=== PATIENT | male | born 1940 | race Caucasian/White ===

== ENCOUNTER 2024-07-28 20:34 | Observation (INO) | payer MEDICARE, BC, SELFPAY ==
[2024-07-28 14:07] VITALS: BP 190/98
--- NOTE | 2024-07-28 17:00 | ED.GENMED ---
History of Present Illness
General
Chief Complaint: Fall
Source: patient and family (Patient's daughter at bedside)
Exam Limitations: none
Time Seen by Provider: 07/28/24 15:40
Nursing documentation reviewed up to this point in time: agreed with
History of Present Illness
History of Present Illness:
Patient is an 83-year-old male presenting with daughter for evaluation of right hip pain following a witnessed fall earlier today. Patient states he was walking in the dining hodges when he tripped and fell landing on his right side. Patient denies
any head strike or loss of consciousness. He has been unable to bear weight/ambulate since. Patient denies any proceeding lightheadedness/dizziness, chest pain, shortness of breath prior to fall.
He reports pain in his right hip, worse with movement. No headache, neck pain, or pain in lower extremities.
Patient states he typically ambulate independently with walker.
Past History
Past History
ED Past Medical History: Arrthythmia (a fib), HTN, Hypercholesterolemia and Psychiatric (anxiety)
ED Past Surgical History: Cholecystectomy and Other (hernia)
Social History
Tobacco: Non-smoker
Living: with family
Employment: Retired
Review of Systems
Review of Systems
Allergies reviewed?: Yes
All Other Systems: ROS reviewed and negative except as documented in HPI and ROS
Phy Exam
Physical Exam
Physical Exam:
GENERAL: No acute distress
HEENT: atraumatic, extraocular muscles intact, no signs of entrapment, dentition intact, no other obvious trauma
NECK: no midline tenderness, normal range of motion, no other obvious trauma
BACK: no midline tenderness, no other obvious trauma
CHEST: no tenderness, no flail segment, no subcutaneous emphysema, no other obvious trauma
LUNGS: clear to auscultation bilaterally
CARDIOVASCULAR: regular rate and rhythm
ABDOMEN: soft, non-tender, no masses, no other obvious trauma
PELVIS: stable. tenderness in right inguinal region.
EXTREMITIES: No deformity of RLE. Tenderness to right inguinal region as above. Full ROM in RLE including hip w/ minima discomfort. LLE atraumatic and nontender with full ROM. B/l lower extremities neurovascularly intact. moving all extremities,
distal pulses intact, no other obvious trauma
NEUROLOGIC: awake, alert x 3, no focal deficits, resting tremor
Course
Orders/Labs/Results
Orders:
Orders
07/28/24 Breakfast
Regular
At Your Request: Limited Participation
07/28/24 16:16
CT Head W/o Iv Contrast Urgent
Comment:
Reason For Exam: fall
Cervical Spine wo Contrast CT [CT Cervical Spine W/o Iv Contr] Urgent
Comment:
Reason For Exam: fall
07/28/24 17:25
Hips, Bilat 5 view W/AP Pelvis [CR Hips NIDA w/wo Pel Min 5 Vw*] Urgent
Comment:
Reason For Exam: fqall, b/l hip pain
Include a pelvis x-ray?: Yes
07/28/24 18:[address] [CT Pelvis W/o Iv Contrast] Urgent
Comment:
Reason For Exam: fall, right hip pain
07/28/24 18:38
Ondansetron Injectable [Zofran] 4 mg .ROUTE .STK-MED ONE
07/28/24 18:41
Tetanus/Diphth/Acelpertussis [Adacel] 0.5 ml IM .ONCE ONE
07/28/24 18:45
Basic Metabolic Panel Urgent
Complete Blood Count/With Diff Urgent
07/28/24 20:00
Admit/Transfer Patient As Directed
Co-Sign Provider:
Level of Care: Observation services
Assign to:: Medical/Surgical
Physician / Group: Maria T
Diagnosis: Ambulatory Dysfunction
07/28/24 20:01
PRN Pain Medication Management As Directed
May give lesser potent ordered pain med per pt: Yes
preference::
Protocol:: Medication orders for pain may be administered in a
manner that supports deferring to patient preference
when the pt is:
- Requesting an ordered lesser potent pain medication.
Least to most potent pain medications are defined
as: acetaminophen < NSAID < tramadol < opioids
(morphine, oxycodone, hydromorphone).
- Requesting a lesser dose of the same medication IF
ORDERED.
- Requesting a less intrusive route of administration
if both routes are prescribed by the provider (PO <
IV).
07/28/24 20:04
Code Status As Directed
Resuscitation Status: Full Code
07/28/24 21:43
Acetaminophen [Tylenol] 650 mg PO Q4HPRN PRN
Apixaban [Eliquis] 5 mg PO BID
07/28/24 21:43
Case Management Consult ONCE
Case Management Consult: Discharge Planning
Activity As Directed
Activity Level: Out of Bed- Chair
Vital Signs As Directed
Frequency: Per unit guidelines
Ot Eval And Treat Routine
Pt Eval And Treat Routine
Activity Level: Out of Bed-Early Mobility
07/28/24 22:00
Carbidopa/Levodopa [Sinemet 25-100] 1 tablet PO TID
Mirtazapine [Remeron] 15 mg PO HS
07/29/24 08:00
Amiodarone [Pacerone] 100 mg PO DAILY
Atorvastatin [Lipitor] 20 mg PO DAILY
Losartan [Cozaar] 100 mg PO DAILY
Metoprolol Xl [Toprol Xl] 100 mg PO DAILY
Pantoprazole [Protonix] 40 mg PO DAILY
Abnormal Lab Results
07/28/24
18:45
RBC 4.66 L 10^6/uL
(4.70-6.10)
RDW 15.8 H %
(11.5-14.5)
MPV 11.1 H fL
(7.4-10.4)
Absolute Monos (auto) 0.8 H 10^3/uL
(0.1-0.6)
Lymphocytes % 19.8 L %
(20.5-51.1)
BUN 23 H mg/dl
(9-20)
Glucose 113 H mg/dl
(70-99)
07/28/24 18:45
07/28/24 18:45
Vital Signs
Initial and Last Documented VS:
Initial Vital Signs
Temp Pulse Resp BP Pulse Ox
98.4 F 62 18 190/98 96
07/28/24 14:07 07/28/24 14:07 07/28/24 14:07 07/28/24 14:07 07/28/24 14:07
Last Documented Vital Signs
Temp Pulse Resp BP Pulse Ox
98.2 F 58 18 176/83 95
07/28/24 21:57 07/28/24 21:57 07/28/24 21:57 07/28/24 21:57 07/28/24 23:39
MDM/Problems Addressed
Differential Diagnosis Includes:
Not limited to: hip fracture, pelvic fracture, hip dislocation, etc
MDM/Problems Addressed:
Patient is an 83 year-old male presenting with right hip pain following mechanical fall earlier today. No known had strike although daughter did not witness fall. No other injuries sustained. Patient unable to bear weight/ambulance since fall. At
baseline � he walks with walker. Patient hemodynamically stable on arrival. Physical exam as above. No evidence of head or neck trauma. He does have tenderness to right inguinal region without any obvious deformity of right lower extremity. No
evidence of other traumatic injuries to extremities. Will obtain bilateral hip x-rays as well as CT/cervical spine and reassess.
Update: CT head/spine without acute abnormalities. Bilateral hip x-ray without evidence of fracture. Given patient remains unable to weight bar � will obtain CT pelvis.
Update: CT pelvis without evidence of fracture. However � patient still unable to bear weight/ambulate independently. In lieu of this � will admit for physical therapy/case management consult in the morning. Patient accepted to hospitalist service
in stable condition.
Chronic conditions affecting care:
N/A
Acute Exacerbation and/or Progression of Chronic Illness:
N/A
*Radiology
Radiology exam reviewed: preliminary read by ED provider (hip xray reviewed by me - no acute fracture) and radiology read reviewed
*Pulse Oximetry
Patient hypoxic: no
*EKG
Interpreted by ED Provider?: NA
*Clinical Analyst Interpretation
Rate: Clinical Analyst- N/A
*Critical Care Note
Total Time (30-74mins, 75-104mins- exclusive of procedures): Not Applicable
Patient Management
Discussion with other providers: Hospitalist
Escalation/DeEscalation of care consider admission/obs:
Admit for PT/CM consult
ED Attending Note
-
Portions of this chart may have been created with voice recognition software.� Occasional wrong word or��sound alike� substitutions may have occurred due to the inherent limitations of voice recognition software.
Discharge Plan
Departure
Patient Disposition: Admit
Date of Disposition: 07/28/24
Time of Disposition: 19:20
Presentation/result/management discussed w/ accepting MD/DO: Hospitalist
Discharge Problem:
Fall, Ambulatory dysfunction, Hip pain, right
Interventions
Interventions:
*Risk Screen - Suicide Last Done: 07/28/24 14:07
*General Assessment Last Done: 07/28/24 14:07
*Neglect/Abuse Screening Last Done: 07/28/24 14:07
*ED COVID-19 Vaccine History Last Done: 07/28/24 14:07
*Nursing Disposition Last Done: 07/28/24 21:37
ED-Musculoskeletal Assessment Last Done: 07/28/24 18:07
ED- Neurological Assessment Last Done: 07/28/24 18:07
ED-Skin Assessment Last Done: 07/28/24 18:07
Discharge Date and Time
Discharge Date/Time: 07/28/24 21:38
[2024-07-28 18:12] VITALS: BP 172/90
[2024-07-28 18:52] LABS: % Basophils 0.7 % (0-2); % Eosinophils 2.2 % (0-6); % Immature Granulocytes 0.4 % (0-0.5); % Lymphocytes 19.8 % (20.5-51.1); % Monocytes 8.6 % (1.7-9.3); % Neutrophils 68.3 % (42.2-75.2); Absolute Basophils 0.1 10^3/uL (0-0.2); Absolute Eosinophils 0.2 10^3/uL (0-0.7); Absolute Lymphocytes 1.8 10^3/uL (1.2-3.4); Absolute Monocytes 0.8 10^3/uL (0.1-0.6); Absolute Neutrophils 6.3 10^3/uL (1.4-6.5); Hematocrit 42.8 % (39.0-52.0); Hemoglobin 14.3 g/dL (13.0-18.0); Mean Corp Hgb Conc. 33.4 g/dL (33.0-37.0); Mean Corpuscular Hgb 30.7 pg (27.0-31.0); Mean Corpuscular Volume 91.8 fL (80.0-94.0); Mean Platelet Volume 11.1 fL (7.4-10.4); Nucleated Red Blood Cells % 0 % (-); Platelet Count 181 10^3/uL (130-400); Red Blood Cell Count 4.66 10^6/uL (4.70-6.10); Red Cell Dist. Width 15.8 % (11.5-14.5); White Blood Cell Count 9.2 10^3/uL (4.8-10.8)
[2024-07-28 19:07] LABS: Blood Urea Nitrogen 23 mg/dl (9-20); Calcium 9.3 mg/dl (8.4-10.2); Carbon Dioxide 24 mmol/L (22-30); Chloride 104 mmol/L (98-107); Glucose 113 mg/dl (70-99); Potassium 4.3 mmol/L (3.5-5.1); Sodium 139 mmol/L (135-145); eGFR > 60.00
--- NOTE | 2024-07-28 19:50 | HPS.HSE ---
Family Physician
-
Family Physician: Patricio Bennett PA-C
Chief Complaint
-
Fall
History of Present Illness
Patient is an 83 y/o male past medical history of Parkinson's Disease, Paroxysmal Atrial Fibrillation, and Hypertension who presents following a fall. Patient resides at [facility]. At baseline he ambulates with a walker. Today he
tripped and fell while in the dining room. He denies hitting his head or loss of consciousness. Unfortunately patient was unable to ambulate in the emergency and it was felt it is unsafe for him to return to his assisted living facility at this
time.
Medical History
Past Medical History
Past Medical History: Reports Other
Additional Past Medical History:
Paroxysmal Atrial Fibrillation
Essential Hypertension
Hyperlipidemia
Parkinson's Disease
Anxiety / Insomnia
Past Surgical History: Reports Other
Additional Past Surgical History:
Cholecystectomy
Hernia Repair
Right Total Hip Arthroplasty
Social History
Tobacco: Non-smoker
Living: Assisted Living
Family History
Family History: Not pertinent
Allergies / Home Medications
Allergies reflects when Allergies were last updated in [facility].
Home Medications with original date entered in [facility]
Allergy/Medication List:
Allergies
Allergy/AdvReac Type Severity Reaction Status Date / Time
No Known Allergies Allergy Verified 07/28/24 14:11
Home Medications
amiodarone 200 mg tablet 100 mg PO DAILY Arrhythmia 02/26/22
apixaban 5 mg tablet (Eliquis) 5 mg PO BID Blood clot prevention/tx 02/26/22
atorvastatin 20 mg tablet 20 mg PO DAILY High cholesterol 02/26/22
carbidopa 25 mg-levodopa 100 mg tablet 1 tab PO TID Neurological Condition 02/26/22
metoprolol succinate 100 mg capsule sprinkle, ext. release 24 hr 100 mg PO DAILY Heart disease/condition 02/26/22
pantoprazole 40 mg tablet,delayed release 40 mg PO DAILY Gastrointestinal issue 02/26/22
bisacodyl 10 mg rectal suppository 10 mg NC DAILYPRN PRN if no BM x 3 days #0 ea 03/05/22
mirtazapine 15 mg tablet 15 mg PO HS #30 tabs 03/05/22
polyethylene glycol 3350 17 gram oral powder packet 17 g PO DAILYPRN PRN constipation #0 ea 03/05/22
losartan 50 mg tablet 100 mg PO BID Blood pressure 07/28/24
Review of Systems
-
A 12 point ROS was completed and negative except as noted: Yes
Constitutional: Denies Fever or Chills
Respiratory: Denies Cough or Trouble Breathing
Cardiac: Denies Chest Pain or Palpitations
Physical Exam
Vital Signs
Vital Signs
Temp Pulse Resp BP Pulse Ox
98.4 F 64 18 172/90 95
07/28/24 14:07 07/28/24 18:12 07/28/24 18:12 07/28/24 18:12 07/28/24 18:12
Physical Exam
General: Comfortable and Conversant
HEENT: Anicteric and Moist mucous membranes
Respiratory: Clear and Non Labored Respirations
Cardiac: S1/S2 and Regular Rhythm
GI: Soft and Non Tender
Rectal: Deferred by Provider
Musculoskeletal: No Clubbing and No Cyanosis
Skin: Warm and Dry
Neuro: Awake, Alert, Oriented and Tremors (Fine Tremors Bilateral Hands)
Psych: Calm
Laboratory Results
-
07/28/24 18:45
07/28/24 18:45
Data Reviewed
-
Diagnostic Radiology: Report Reviewed by me
CT Scan: Report Reviewed by me
Lab Data: Labs Reviewed by me
Impression/Plan
-
Ambulatory Dysfunction
-Consult PT/OT
-Consult Case Management for discharge planning
Paroxysmal Atrial Fibrillation
-Continue amiodarone and metoprolol for rate/rhythm control
-Continue Eliquis
Essential Hypertension
-Continue losartan and metoprolol with hold parameters
Hyperlipidemia
-Continue atorvastatin
Parkinson's Disease
-Continue Sinemet
Anxiety / Insomnia
-Continue Remeron
DVT proph: SCDs
Code Status: Full Code
[2024-07-28] MEDS: ADACEL 0.5 ML IM (20:15)
--- NOTE | 2024-07-28 20:17 | W.PN.UPDATE ---
Update Note
Progress Note Update
This is an addendum to the H&P written by Amina Oliver on 07/28/24. Patient seen and examined independently with PA.
83-year-old male past medical history of Parkinson's disease, paroxysmal atrial fibrillation on Eliquis, hypertension, anxiety, hypercholesterolemia, Citrobacter urinary tract infection with bacteremia, presenting from [facility] with trip and fall
today. Normally ambulates with walker.
Hip x-ray and pelvic CT negative. CT head and cervical spine negative.
Patient unable to ambulate. PT/OT and case management for placement.
[2024-07-28 21:57] VITALS: BP 176/83
[2024-07-28 21:58] VITALS: BMI 34.3
[2024-07-28 22:02] VITALS: BMI 34.3
[2024-07-28] MEDS: SINEMET 25-100 1 TABLET PO (22:19)
[2024-07-28] MEDS: ELIQUIS 5 MG PO (22:19)
[2024-07-28] MEDS: REMERON 15 MG PO (22:21)
[2024-07-29 07:00] VITALS: BP 174/88
[2024-07-29] MEDS: PACERONE 100 MG PO (08:43)
[2024-07-29] MEDS: ELIQUIS 5 MG PO ×2 (08:43→19:32)
[2024-07-29] MEDS: PROTONIX 40 MG PO (08:43)
[2024-07-29] MEDS: SINEMET 25-100 1 TABLET PO ×3 (08:44→21:40)
[2024-07-29] MEDS: COZAAR 100 MG PO (08:44)
[2024-07-29] MEDS: LIPITOR 20 MG PO (08:44)
[2024-07-29] MEDS: TOPROL XL 100 MG PO (08:45)
--- NOTE | 2024-07-29 09:22 | W.PN.HOSP.TC ---
Today's Communication/Plan
-
PT OT. Discharge planning
Assessment / Plan
Assessment / Plan
Physical exam:
General: Well Developed, Well Nourished and No Apparent Distress
HEENT: Normocephalic, Atraumatic and Moist Mucous Membranes
Respiratory: Clear to Auscultation; Negative Wheezes, Rales or Rhonchi
Cardiac: Regular Rhythm and S1/S2
GI: Soft, Nontender and Nondistended
Musculoskeletal: No Clubbing, No Cyanosis and No Edema
Neuro: Awake, Alert and Oriented, generalized weakness
Psych: Calm
A/P:
Ambulatory Dysfunction
-Consult PT/OT
-Consult Case Management for discharge planning
- Discussed with daughter over the phone today
Paroxysmal Atrial Fibrillation
-Continue amiodarone and metoprolol for rate/rhythm control
-Continue Eliquis
Essential Hypertension
-Continue losartan and metoprolol with hold parameters
Hyperlipidemia
-Continue atorvastatin
Parkinson's Disease
-Continue Sinemet
Anxiety / Insomnia
-Continue Remeron
DVT proph: SCDs
Code Status: Full Code
Anticipated Discharge: 24 - 48 hours
Subjective/Interval History
-
Date of Service: July 29, 2024
No new complaints. Generalized fatigue
Objective Data
-
Vital Signs:
Vital Signs
Temp Pulse Resp BP Pulse Ox
98.2 F 58 18 176/83 95
07/28/24 21:57 07/28/24 21:57 07/28/24 21:57 07/28/24 21:57 07/28/24 23:39
I&O
07/28/24 07/29/24 07/30/24
06:59 06:59 06:59
Intake Total 480 / 480
Output Total 400 / 400
Balance 80 / 80
[2024-07-29 09:56] VITALS: BP 142/87; PULSE 62; O2SAT 96
[2024-07-29 10:01] VITALS: BP 142/82; PULSE 62; O2SAT 96
--- NOTE | 2024-07-29 14:43 | CM ---
Patient resting, CM spoke w/ patient's daughter, Christy, for information. Initial assessment completed. Patient is an 83 y/o male past medical history of Parkinson's Disease, Paroxysmal Atrial Fibrillation, and Hypertension who presents following a
fall.
Patient resides at [facility], per Christy, patient still has his home in [place] and has plan eventually for patient to return home. Patient has been residing at [facility] for a little over a year. Patient uses [facility] to ambulate, gets
assisted w/ showering once a week, assisted w/ medication management. Patient has received physical therapy at [facility] in the past.
PCP: Patricio Bennett
Pharmacy: [facility]
Therapy assessed- recommending SNF at d/c
Patient is currently admitted as obs. MARMOLEJO form verbally reviewed, copy on chart
Will discuss w/ patient and/or daughter about skilled rehab
Plan: SNF recommended
[2024-07-29 15:32] VITALS: BP 149/69
[2024-07-29 17:21] VITALS: BMI 34.3
[2024-07-29 19:27] LABS: Urine Albumin 1+ (Neg - Trace); Urine Bilirubin Negative (Negative); Urine Character Clear (Clear); Urine Color Yellow; Urine Glucose Negative (Negative); Urine Ketone 1+ (Negative); Urine Leukocyte Negative (Negative); Urine Nitrite Negative (Negative); Urine Occult Blood 3+ (Negative); Urine Specific Gravity 1.025 (<1.030); Urine Urobilinogen 1+ (Neg - 1+)
[2024-07-29 19:34] LABS: Urine Mucus Moderate; Urine Squamous Cell 0-2 /LPF (Few)
[2024-07-29 19:35] LABS: Urine Bacteria Few (Negative); Urine White Cell 0-2 /HPF (0-5)
[2024-07-29] MEDS: REMERON 15 MG PO (21:40)
[2024-07-29 23:17] VITALS: BP 147/67
[2024-07-30 02:50] VITALS: BP 172/84
[2024-07-30] MEDS: APRESOLINE 10 MG IV (02:54)
--- NOTE | 2024-07-30 03:34 | PTCARENOTE ---
Patient was restless and agitated in bed. Redirection/reorientation provided to the patient. Vital signs obtained. Patient bladder scanned for 154 ml. Patient offered water and the urinal. Bed alarm remains in place.
--- NOTE | 2024-07-30 03:48 | DOWNTIME ---
There was a [employer] Downtime on 07/30/2024 from 0200 to 07/31/2023 at 0318 . Downtime documentation of patient's care, including medication administrations, has been reconciled in the electronic record per guidelines. Refer to the
patient's paper chart under the miscellaneous tab to see printed paper medication records and downtime forms.
[2024-07-30 06:03] VITALS: BP 145/70
[2024-07-30 07:00] VITALS: BP 159/79
--- NOTE | 2024-07-30 08:37 | W.PN.HOSP.TC ---
Today's Communication/Plan
-
PT OT. Discharge planning
Assessment / Plan
Assessment / Plan
Physical exam:
General: Well Developed, Well Nourished and No Apparent Distress
HEENT: Normocephalic, Atraumatic and Moist Mucous Membranes
Respiratory: Clear to Auscultation; Negative Wheezes, Rales or Rhonchi
Cardiac: Regular Rhythm and S1/S2
GI: Soft, Nontender and Nondistended
Musculoskeletal: No Clubbing, No Cyanosis and No Edema
Neuro: Awake, Alert and Oriented, generalized weakness, bradykinesia, masked facies, cogwheel rigidity with presence of tremors
Psych: Calm
A/P:
Ambulatory Dysfunction
-Consult PT/OT
-Consult Case Management for discharge planning
- Discussed with daughter over the phone yesterday
Confusion likely related to delirium
- Check UA
-CT scan of the head unremarkable for acute findings
- Monitor mental status
Paroxysmal Atrial Fibrillation
-Continue amiodarone and metoprolol for rate/rhythm control
-Continue Eliquis
Essential Hypertension
-Continue losartan and metoprolol with hold parameters
Hyperlipidemia
-Continue atorvastatin
Parkinson's Disease
-Continue Sinemet
Anxiety / Insomnia
-Continue Remeron
DVT proph: SCDs
Code Status: Full Code
Anticipated Discharge: 24 - 48 hours
Subjective/Interval History
-
Date of Service: July 30, 2024
Patient alert and mildly confused but much improved than last night. Afebrile
Objective Data
-
Vital Signs:
Vital Signs
Temp Pulse Resp BP Pulse Ox
97.6 F 56 18 159/79 96
07/30/24 07:00 07/30/24 07:00 07/30/24 07:00 07/30/24 07:00 07/30/24 07:00
I&O
07/29/24 07/30/24 07/31/24
06:59 06:59 06:59
Intake Total 480 / 480
Output Total 400 / 400 250 / 250
Balance 80 / 80 -250 / -250
[2024-07-30] MEDS: SINEMET 25-100 1 TABLET PO ×3 (10:17→21:08)
[2024-07-30] MEDS: COZAAR 100 MG PO (10:17)
[2024-07-30] MEDS: LIPITOR 20 MG PO (10:18)
[2024-07-30] MEDS: PACERONE 100 MG PO (10:18)
[2024-07-30] MEDS: ELIQUIS 5 MG PO ×2 (10:18→20:28)
[2024-07-30] MEDS: PROTONIX 40 MG PO (10:23)
[2024-07-30] MEDS: TOPROL XL 100 MG PO (10:28)
[2024-07-30 13:25] LABS: % Basophils 0.5 % (0-2); % Eosinophils 1.1 % (0-6); % Immature Granulocytes 0.3 % (0-0.5); % Monocytes 10.3 % (1.7-9.3); % Neutrophils 74.8 % (42.2-75.2); Absolute Eosinophils 0.1 10^3/uL (0-0.7); Absolute Monocytes 0.8 10^3/uL (0.1-0.6); Absolute Neutrophils 5.5 10^3/uL (1.4-6.5); Hematocrit 41.5 % (39.0-52.0); Mean Corp Hgb Conc. 33.7 g/dL (33.0-37.0); Mean Corpuscular Hgb 30.8 pg (27.0-31.0); Mean Corpuscular Volume 91.4 fL (80.0-94.0); Nucleated Red Blood Cells % 0 % (-); Platelet Count 171 10^3/uL (130-400); Red Blood Cell Count 4.54 10^6/uL (4.70-6.10); Red Cell Dist. Width 15.6 % (11.5-14.5); White Blood Cell Count 7.3 10^3/uL (4.8-10.8)
[2024-07-30 13:38] LABS: ALT (SGPT) < 10 U/L (0-50); AST (SGOT) 21 U/L (17-59); Albumin 3.7 g/dl (3.5-5.0); Alkaline Phosphatase 71 U/L (38-126); Blood Urea Nitrogen 24 mg/dl (9-20); Calcium 9.3 mg/dl (8.4-10.2); Carbon Dioxide 28 mmol/L (22-30); Chloride 105 mmol/L (98-107); Estimated Creatinine Clearance 94 ml/min; Glucose 125 mg/dl (70-99); Potassium 3.6 mmol/L (3.5-5.1); Sodium 141 mmol/L (135-145); Total Bilirubin 1.5 mg/dl (0.2-1.3); Total Protein 6.4 g/dl (6.3-8.2); eGFR > 60.00
--- NOTE | 2024-07-30 13:45 | CON.NEURO ---
Consultation
Order
Date of Consultation: 07/30/24
Requesting Provider: Beltran Michaels MD
Reason for Consult: Encephalopathy, Parkinson disease
Neurology Consultation Note.
HPI: This is an 83-year-old RH man who presented to [facility] on July 28, 2024 status post fall. According to the patient he lost his balance when he was turning to sit down to have breakfast.
The patient states that he has had progressive resting right greater than left hand tremor over the last year. He admits to visual as well as auditory hallucinations that he has been experiencing in the evening over the last couple of months.
He describes seeing people who appear real to him, 'I see and it's just like they're right there. They always look the same.' He mentions being able to see and talk to these hallucinations, and that they talk back to him. The patient acknowledges
that he knows these people are not actually present.
ER VS:174/88, 61, afebrile
EKG:�pending
PDMP:none
Labs: Glucose�113, bilirubin�1.5, normal sodium, creatinine, WBCs.
UA�positive for ketones, RBCs, bacteria, albumin
CT head wo contrast-moderate subcortical, deep, and periventricular white matter low-attenuation
PMH: Parkinsonism PA A-Fib, HTN, DLP, insomnia, GERD
PSH: R TKA, cholecystectomy, hernia repair, cholecystectomy
SH: Resident at [facility], former villa, has 2 children ambulates with a walker
FH: Not contributory to current presentation.
All:NKDA
ROS: Constitutional: Negative. Negative for chills, fever and unexpected weight change.
HENT: Positive for poor hearing
Eyes: Positive for impaired vision
Respiratory: Negative for cough, choking and shortness of breath.
Cardiovascular: Negative for chest pain, palpitations and leg swelling.
Gastrointestinal: Negative for abdominal pain and vomiting.
Endocrine: Negative. Negative for cold intolerance.
Genitourinary: Denied having urinary incontinence
Musculoskeletal: Negative for back pain, gait problem, neck pain and neck stiffness.
Skin: Negative for rash.
Allergic/Immunologic: Negative. Negative for immunocompromised state.
Neurological: Positive for resting hand and head tremor, imbalance
Psychiatric/Behavioral: Positive for visual and auditory hallucination
General: Well developed. In no acute distress.
Cardio: Regular rate and rhythm without murmur. Extremities are without cyanosis or edema.
Neuro:
Mental Status: Alert, oriented to self, place, month, year. Date was incorrect. Impaired attention and recall. Follows simple requests. Nonfluent. No hemineglect.
Cranial Nerves: Pupils are equally round and reactive to light. EOMs full. Visual cortes full to confrontation. No ptosis. No nystagmus. V1-V3 intact to light touch and pinprick bilaterally, symmetric. Face symmetric. Impaired hearing AU.
The palate elevated well. SCMs and traps 5/5. Tongue midline. Mild dysarthria and dysphonia.
Motor: Increased motor tone in upper and lower extremities. No pronator or arm drift. Strength 5/5 throughout. No clonus.
Reflexes: Bilateral grasp
Sensory: Absent vibration at the toes and ankles and preserved at the knees
Coordination: Right greater than left resting hand and arm tremor, resting chin tremor.
Gait: deferred
Assessment and Plan:
I. Probable Lewy body disease
II. Ambulatory dysfunction
III. PA A-fib
IV. Distal symmetric large fiber polyneuropathy
- Telemetry monitoring
- Fall precautions
- Please obtain orthostatic vital signs
- Avoid medications with dopamine blocking properties
- Polyneuropathy blood work
- Continue carbidopa 25 mg-levodopa 100 mg tablet 1 tab PO TID
-Please obtain medical records from patient's PCP/neurologist
-Psychiatry consult
-PT/OT
I personally reviewed all radiology and labs along with past medical records pertinent to current medical problems. Total time spent in patient care is 60 minutes.
Thank you for allowing us to participate in the care of this patient. We will continue to follow. Please do not hesitate to contact us with any questions or concerns.
Subjective/Objective
Subjective Data
Date of Service: July 30, 2024
Objective Data
Vital Signs
Temp Pulse Resp BP Pulse Ox
36.4 C 56 18 159/79 96
07/30/24 07:00 07/30/24 07:00 07/30/24 07:00 07/30/24 07:00 07/30/24 09:00
Lab Results
07/30/24 13:08
07/30/24 13:08
Sodium 141 mmol/L (135-145) 07/30/24 13:08
Potassium 3.6 mmol/L (3.5-5.1) 07/30/24 13:08
BUN 24 mg/dl (9-20) H 07/30/24 13:08
Glucose 125 mg/dl (70-99) H 07/30/24 13:08
Calcium 9.3 mg/dl (8.4-10.2) 07/30/24 13:08
Patient Allergies
No Known Allergies Allergy (Verified 07/28/24 14:11)
Medications
-
Active Medications
Generic Name Dose Route Start Last Admin
Trade Name Freq PRN Reason Stop Dose Admin
Acetaminophen 650 mg 07/28/24 21:43
Acetaminophen 325 Mg Tablet PO 08/25/24 21:42
Q4HPRN PRN
mild pain/ fever>100.5F
Amiodarone HCl 100 mg 07/29/24 08:00 07/30/24 10:18
Amiodarone 200 Mg Tablet PO 08/26/24 07:59 100 mg
DAILY PAKO Administration
Apixaban 5 mg 07/28/24 21:43 07/30/24 10:18
Apixaban (Eliquis) 5 Mg Tablet PO 08/25/24 21:42 5 mg
BID PAKO Administration
Atorvastatin Calcium 20 mg 07/29/24 08:00 07/30/24 10:18
Atorvastatin (Lipitor) 20 Mg Tablet PO 08/26/24 07:59 20 mg
DAILY PAKO Administration
Carbidopa/Levodopa 1 tablet 07/28/24 22:00 07/30/24 10:17
Carbidopa (25 Mg)/Levodopa (100 Mg) Regular Release Tablet PO 08/25/24 21:59 1 tablet
TID PAKO Administration
Docusate Sodium 100 mg 07/30/24 13:00
Docusate Sodium 100 Mg Capsule PO 08/27/24 12:59
BID PAKO
Hydralazine HCl 10 mg 07/28/24 22:56 07/30/24 02:54
Hydralazine 20 Mg/Ml Vial IV 08/25/24 22:55 10 mg
Q6HPRN PRN Administration
SBP>180 or DBP>100
Losartan Potassium 100 mg 07/29/24 08:00 07/30/24 10:17
Losartan 100 Mg Tablet PO 08/26/24 07:59 100 mg
DAILY PAKO Administration
Metoprolol Succinate 100 mg 07/29/24 08:00 07/30/24 10:28
Metoprolol 100 Mg Extended Release Tablet PO 08/26/24 07:59 100 mg
DAILY PAKO Administration
Mirtazapine 15 mg 07/28/24 22:00 07/29/24 21:40
Mirtazapine 15 Mg Regular Release Tablet PO 08/25/24 21:59 15 mg
HS PAKO Administration
Pantoprazole Sodium 40 mg 07/29/24 08:00 07/30/24 10:23
Pantoprazole 40 Mg Delayed Release Tablet PO 08/26/24 07:59 40 mg
DAILY PAKO Administration
Polyethylene Glycol 17 grams 07/30/24 13:00
Polyethylene Glycol Powder 17 Grams Packet PO 08/27/24 12:59
DAILY PAKO
Sodium Chloride 0 flush 07/28/24 22:00
Sodium Chloride 0.9% (Flush) Syringe IV 08/25/24 21:59
PER PROTOCOL PAKO
Home Medications
�Medication �Instructions �Recorded
amiodarone 200 mg tablet 100 mg PO DAILY Arrhythmia 02/26/22
apixaban 5 mg tablet (Eliquis) 5 mg PO BID Blood clot 02/26/22
prevention/tx
atorvastatin 20 mg tablet 20 mg PO DAILY High cholesterol 02/26/22
carbidopa 25 mg-levodopa 100 mg 1 tab PO TID Neurological Condition 02/26/22
tablet
metoprolol succinate 100 mg 100 mg PO DAILY Heart 02/26/22
capsule sprinkle, ext. release 24 disease/condition
hr
pantoprazole 40 mg tablet,delayed 40 mg PO DAILY Gastrointestinal 02/26/22
release issue
bisacodyl 10 mg rectal suppository 10 mg MN DAILYPRN PRN if no BM x 3 03/05/22
days #0 ea
mirtazapine 15 mg tablet 15 mg PO HS #30 tabs 03/05/22
polyethylene glycol 3350 17 gram 17 g PO DAILYPRN PRN constipation 03/05/22
oral powder packet #0 ea
losartan 50 mg tablet 100 mg PO BID Blood pressure 07/28/24
Vital Signs and Labs
-
Vital Signs and Labs:
Vital Signs
Temp Pulse Resp BP Pulse Ox
36.4 C 61 20 143/71 97
07/30/24 15:00 07/30/24 15:00 07/30/24 15:00 07/30/24 15:00 07/30/24 15:00
Lab Results
07/30/24 13:08
07/30/24 13:08
Sodium 141 mmol/L (135-145) 07/30/24 13:08
Potassium 3.6 mmol/L (3.5-5.1) 07/30/24 13:08
BUN 24 mg/dl (9-20) H 07/30/24 13:08
Glucose 125 mg/dl (70-99) H 07/30/24 13:08
Calcium 9.3 mg/dl (8.4-10.2) 07/30/24 13:08
Medications
-
Medications:
Generic Name Dose Route Start Last Admin
Trade Name Freq PRN Reason Stop Dose Admin
Acetaminophen 650 mg 07/28/24 21:43
Acetaminophen 325 Mg Tablet PO 08/25/24 21:42
Q4HPRN PRN
mild pain/ fever>100.5F
Amiodarone HCl 100 mg 07/29/24 08:00 07/30/24 10:18
Amiodarone 200 Mg Tablet PO 08/26/24 07:59 100 mg
DAILY PAKO Administration
Apixaban 5 mg 07/28/24 21:43 07/30/24 10:18
Apixaban (Eliquis) 5 Mg Tablet PO 08/25/24 21:42 5 mg
BID PAKO Administration
Atorvastatin Calcium 20 mg 07/29/24 08:00 07/30/24 10:18
Atorvastatin (Lipitor) 20 Mg Tablet PO 08/26/24 07:59 20 mg
DAILY PAKO Administration
Carbidopa/Levodopa 1 tablet 07/28/24 22:00 07/30/24 10:17
Carbidopa (25 Mg)/Levodopa (100 Mg) Regular Release Tablet PO 08/25/24 21:59 1 tablet
TID PAKO Administration
Docusate Sodium 100 mg 07/30/24 13:00 07/30/24 14:48
Docusate Sodium 100 Mg Capsule PO 08/27/24 12:59 100 mg
BID PAKO Administration
Hydralazine HCl 10 mg 07/28/24 22:56 07/30/24 02:54
Hydralazine 20 Mg/Ml Vial IV 08/25/24 22:55 10 mg
Q6HPRN PRN Administration
SBP>180 or DBP>100
Losartan Potassium 100 mg 07/29/24 08:00 07/30/24 10:17
Losartan 100 Mg Tablet PO 08/26/24 07:59 100 mg
DAILY PAKO Administration
Metoprolol Succinate 100 mg 07/29/24 08:00 07/30/24 10:28
Metoprolol 100 Mg Extended Release Tablet PO 08/26/24 07:59 100 mg
DAILY PAKO Administration
Mirtazapine 15 mg 07/28/24 22:00 07/29/24 21:40
Mirtazapine 15 Mg Regular Release Tablet PO 08/25/24 21:59 15 mg
HS PAKO Administration
Pantoprazole Sodium 40 mg 07/29/24 08:00 07/30/24 10:23
Pantoprazole 40 Mg Delayed Release Tablet PO 08/26/24 07:59 40 mg
DAILY PAKO Administration
Polyethylene Glycol 17 grams 07/30/24 13:00 07/30/24 14:48
Polyethylene Glycol Powder 17 Grams Packet PO 08/27/24 12:59 17 grams
DAILY PAKO Administration
Sodium Chloride 0 flush 07/28/24 22:00
Sodium Chloride 0.9% (Flush) Syringe IV 08/25/24 21:59
PER PROTOCOL PAKO
Home Medications
-
Home Medications
amiodarone 200 mg tablet 100 mg PO DAILY Arrhythmia 02/26/22
apixaban 5 mg tablet (Eliquis) 5 mg PO BID Blood clot prevention/tx 02/26/22
atorvastatin 20 mg tablet 20 mg PO DAILY High cholesterol 02/26/22
carbidopa 25 mg-levodopa 100 mg tablet 1 tab PO TID Neurological Condition 02/26/22
metoprolol succinate 100 mg capsule sprinkle, ext. release 24 hr 100 mg PO DAILY Heart disease/condition 02/26/22
pantoprazole 40 mg tablet,delayed release 40 mg PO DAILY Gastrointestinal issue 02/26/22
bisacodyl 10 mg rectal suppository 10 mg MN DAILYPRN PRN if no BM x 3 days #0 ea 03/05/22
mirtazapine 15 mg tablet 15 mg PO HS #30 tabs 03/05/22
polyethylene glycol 3350 17 gram oral powder packet 17 g PO DAILYPRN PRN constipation #0 ea 03/05/22
losartan 50 mg tablet 100 mg PO BID Blood pressure 07/28/24
[2024-07-30] MEDS: COLACE 100 MG PO ×2 (14:48→20:27)
[2024-07-30] MEDS: MIRALAX 17 GRAMS PO (14:48)
[2024-07-30 15:00] VITALS: BP 143/71
[2024-07-30] MEDS: REMERON 15 MG PO (21:09)
[2024-07-30 21:22] LABS: Folate 8.6 ng/ml (2.76-20); Vitamin B12 235 pg/ml (239-931)
[2024-07-30 23:46] VITALS: BP 136/72
[2024-07-31 07:24] VITALS: BP 185/79
[2024-07-31] MEDS: COZAAR 100 MG PO (08:21)
[2024-07-31] MEDS: LIPITOR 20 MG PO (08:21)
[2024-07-31] MEDS: COLACE 100 MG PO ×2 (08:21→21:02)
[2024-07-31] MEDS: ELIQUIS 5 MG PO ×2 (08:21→21:01)
[2024-07-31] MEDS: MIRALAX 17 GRAMS PO (08:21)
[2024-07-31] MEDS: PROTONIX 40 MG PO (08:21)
[2024-07-31] MEDS: PACERONE 100 MG PO (08:21)
[2024-07-31] MEDS: TOPROL XL 100 MG PO (08:22)
[2024-07-31] MEDS: SINEMET 25-100 1 TABLET PO ×3 (08:22→21:02)
--- NOTE | 2024-07-31 09:06 | W.PN.HOSP.TC ---
Today's Communication/Plan
-
Psychiatry eval. Rehab eval
Assessment / Plan
Assessment / Plan
Physical exam:
General: Well Developed, Well Nourished and No Apparent Distress
HEENT: Normocephalic, Atraumatic and Moist Mucous Membranes
Respiratory: Clear to Auscultation; Negative Wheezes, Rales or Rhonchi
Cardiac: Regular Rhythm and S1/S2
GI: Soft, Nontender and Nondistended
Musculoskeletal: No Clubbing, No Cyanosis and No Edema
Neuro: Awake, Alert and Oriented, generalized weakness, bradykinesia, masked facies, cogwheel rigidity with presence of tremors
Psych: Calm
A/P:
Ambulatory Dysfunction
-Consult PT/OT
-Consult Case Management for discharge planning
- Discussed with daughter over the phone again today
-Discussed with casey saw operator and will request acute rehab evaluation-consulted text transcriber.
Confusion likely related to delirium but also could be related to Parkinson's disease. Hallucinations. Neurology feels probable Lewy body disease. Psychiatry feels might benefit from Neuplazid but can investigate outpatient.
- Check UA and unremarkable
-CT scan of the head unremarkable for acute findings
- Monitor mental status
-Neurology consult appreciated
- Psychiatry consult as requested by neurology
- Rehab consulted
-Discussed with casey saw operator and will request acute rehab evaluation-consulted text transcriber.
Paroxysmal Atrial Fibrillation
-Continue amiodarone and metoprolol for rate/rhythm control
-Continue Eliquis
Essential Hypertension
-Continue losartan and metoprolol with hold parameters
Hyperlipidemia
-Continue atorvastatin
Parkinson's Disease
-Continue Sinemet
Anxiety / Insomnia
-Continue Remeron
DVT proph: SCDs
Code Status: Full Code
Total time spent on today's encounter was 52 minutes which included time spent in counseling the patient/family regarding diagnosis and treatment plan as listed above, goals of care, and symptom management. Case was discussed with nursing staff,
specialists, and care coordinators/case management. All labs and imaging personally reviewed by me. Remainder the time spent in detailed review of previous records, lab data, imaging, and other medical provider documentation.
Anticipated Discharge: 24 - 48 hours
Subjective/Interval History
-
Date of Service: July 31, 2024
Patient alert but mildly disoriented at times. No hallucinations today. Afebrile
Objective Data
-
Vital Signs:
Vital Signs
Temp Pulse Resp BP Pulse Ox
97.9 F 69 18 185/79 96
07/31/24 07:24 07/31/24 07:24 07/31/24 07:24 07/31/24 07:24 07/31/24 07:24
I&O
07/30/24 07/31/24 08/01/24
06:59 06:59 06:59
Intake Total 960 / 960
Output Total 250 / 250 500 / 800 300 / 300
Balance -250 / -250 460 / 160 -300 / -300
--- NOTE | 2024-07-31 11:03 | CM ---
Addendum entered by Mariza Troy 07/31/24 14:27:
No beds at [facility], referral sent [facility].
Addendum entered by Mariza Troy 07/31/24 12:28:
Patient's daughter did contact bottle caser and stated that she and patient are unable to pay for private pay, patient's daughter is requesting that patient be evaluation for acute rehab, PM&R consulted. pool manager reached out to [facility]
and sent a referral to [facility].
Original Note:
Chart reviewed and patient remains on OBS status, therefore patient does not qualify for skilled placement under his Medicare insurance, bottle caser checked to make sure the WAIVER Program was not available to patient and patient cannot participate
and receive skilled placement under WAIVER PROGRAM. Only options for patient are to private pay for [facility], or return to [facility] with PT/OT, message left for patient's daughter.
Plan; If patient and family are not agreeable to private pay for skilled he will have to return to [facility] with PT/OT.
--- NOTE | 2024-07-31 11:20 | CON.MD ---
Addendum entered and electronically signed by Norman Farrell MD 07/31/24 11:52:
spoke to daughter who has very close contact with him . she speaks to him on a daily basis and knows him well. she says she has not been aware of frequent hallucinations that have interfered w lof. she noted that his demeanor changed when he came in
to the hospital which is not atypical given some degree of cognitive decline. i did tell her he was quite pleasant this am. we discussed whether to rx hallucinations and for the moment will not. she will have him see neuro after dc and investigate
neuplazid. she believes she can get father to accept a short stay at [facility] to work on balance and coordination.
Original Note:
Consultation - Medical
-
patient seen chart reviewed. spoke with nursing. attempted to call patient's jalen mcdonald but no answer. patient was a fair historian. he was certainly pleasant and tried to be cooperative. left message for daughter where i can be reached to gather
further hx. patient is an 83 year old male who resides at [facility] in assisted living. he was brought to bc of a fall. he has been dx with parkinson's disease. he could not tell me when the disease was first dx or how long he has been treated for
it. he has been rx with sinemet. patient has also complained of vivid visual hallucinations of people talking to him.sometimes he will talk back. he cannot tell if they are real or a hallucination sometimes. he asked me 'how do i know if you are a
hallucination?' i reached out to touch his hand and told him you would not be able to grasp the hand of a hallucination. he had told me he did not believe he had been hallucinating today. i had asked nursing if they observed any emotional distress
bc of hallucinations and they had not. the patient denied depression or anxiety particularly despite the hallucinations. he said he has never sought psych treatment. sleep is variable. sometimes he sleeps well other times he awakens and has a hard
time falling back asleep. energy level is fair though not great. he explained to me that he can have a difficult time ambulating. the PD makes him feel 'stiff' and sometimes his feet just don't want to move. he has never experienced suicidal
thoughts.
past psych hx see above none to speak of prior to the dev't of hallucinations
medical hx patient could not give me much of his medical hx which is likely related to cognitive decline. he was aware of PD but not aware of htn hld a fib. he takes amiodarone he has hx hyponatremia not currently. he is being rx for uti. cat
scan brain hip pelvis xrays and cat are unremarkable no new findings. b12 is low. do not see tsh in chart patient denied visual issues will check w daughter
fh denied
substance abuse denied
social two kids. 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 [facility] he lives is 'okay'
mse alert oriented to person place 'hospital' eventually he recalled antionettewrachel when i told him it starts with a d. oriented to year not to month knew it was spring. pleasant and cooperative speech nl rate and tone goal oriented see above re
hallucinations mood is neutral affect constricted no si aver intelligence but some cognitive impairement insight judgment fair
dx hallucinations likely secondary to parkinson's disease
plan patient rather noncommital on the issue of treating hallucinations. i could not really get a sense that his quality of life was very impaired bc of them. i explained that we could treat them but all meds have side effects and i could not
guarantee no side effects. he is okay w me talking to d to get some more hx and some idea about how he actually does from day to day. nuplazid is really the rx of choice for PD related hallucinations. we do not have it here. he would need to start
this as an out patient . seroquel could be another alternative as it has less d2 activity and would be less likely to inc pd sx if a decision were made to rx. . check tsh replete b12 other vitamin levels pending. visual hallucinations can also be
secondary to eye issues. would suggest ophthal exam. lastly not clear to me this is lewy body.... it may simply be PD whcih is not infrequently also accompanied by visual hallucinations. will follow
[2024-07-31 11:44] VITALS: BP 117/60; PULSE 60; O2SAT 94
[2024-07-31 11:52] VITALS: BP 117/60; PULSE 60; O2SAT 94
[2024-07-31] MEDS: VITAMIN B-12 1000 MCG PO (11:53)
[2024-07-31 15:59] VITALS: BP 138/64
--- NOTE | 2024-07-31 17:11 | W.PN.NEURO.1 ---
Today's Communication / Plan
-
.
Subjective/Objective
Subjective Data
Date of Service: July 31, 2024
Neurology follow-up note.
Mr. Kirkland reports no complaints.
Vit B12-235, normal folate.
PMH: Parkinsonism PA A-Fib, HTN, DLP, insomnia, GERD
PSH: R TKA, cholecystectomy, hernia repair, cholecystectomy
SH: Resident at [facility], former villa, has 2 children ambulates with a walker
FH: Not contributory to current presentation.
All:NKDA
ROS: Constitutional: Negative. Negative for chills, fever and unexpected weight change.
HENT: Positive for poor hearing
Eyes: Positive for impaired vision
Respiratory: Negative for cough, choking and shortness of breath.
Cardiovascular: Negative for chest pain, palpitations and leg swelling.
Gastrointestinal: Negative for abdominal pain and vomiting.
Endocrine: Negative. Negative for cold intolerance.
Genitourinary: Denied having urinary incontinence
Musculoskeletal: Negative for back pain, gait problem, neck pain and neck stiffness.
Skin: Negative for rash.
Allergic/Immunologic: Negative. Negative for immunocompromised state.
Neurological: Positive for resting hand and head tremor, imbalance
Psychiatric/Behavioral: Positive for visual and auditory hallucination
General: Well developed. In no acute distress.
Cardio: Regular rate and rhythm without murmur. Extremities are without cyanosis or edema.
Neuro:
Mental Status: Alert, oriented to self, place, month, year. Increased processing time. Date was incorrect. Impaired attention and recall. Follows simple requests. Nonfluent. No hemineglect.
Cranial Nerves: Pupils are equally round and reactive to light. EOMs full. Visual cortes full to confrontation. No ptosis. No nystagmus. V1-V3 intact to light touch and pinprick bilaterally, symmetric. Face symmetric. Impaired hearing AU.
The palate elevated well. SCMs and traps 5/5. Tongue midline. Mild dysarthria and dysphonia.
Motor: Increased motor tone in upper and lower extremities. No pronator or arm drift. Strength 5/5 throughout. No clonus.
Reflexes: Bilateral grasp
Sensory: Absent vibration at the toes and ankles and preserved at the knees
Coordination: Right greater than left resting hand and arm tremor, resting chin tremor.
Gait: deferred
Assessment and Plan:
I. Probable Lewy body disease
II. Ambulatory dysfunction
III. PA A-fib
IV. Distal symmetric large fiber polyneuropathy
- Fall precautions
- Please obtain orthostatic vital signs
- Avoid medications with dopamine blocking properties
- Please follow up SPEP/IF, vit B1
- Continue carbidopa 25 mg-levodopa 100 mg tablet 1 tab PO TID
-Please obtain medical records from patient's PCP/neurologist
-Psychiatry follow up
-PT/OT
- Patient neurology follow
I personally reviewed all radiology and labs along with past medical records pertinent to current medical problems. Total time spent in patient care is 36 minutes.
Thank you for allowing us to participate in the care of this patient. Please do not hesitate to contact us with any questions or concerns.
Objective Data
Vital Signs
Temp Pulse Resp BP Pulse Ox
36.6 C 62 20 138/64 94
07/31/24 15:59 07/31/24 15:59 07/31/24 15:59 07/31/24 15:59 07/31/24 15:59
Lab Results
07/30/24 13:08
07/30/24 13:08
Sodium 141 mmol/L (135-145) 07/30/24 13:08
Potassium 3.6 mmol/L (3.5-5.1) 07/30/24 13:08
BUN 24 mg/dl (9-20) H 07/30/24 13:08
Glucose 125 mg/dl (70-99) H 07/30/24 13:08
Calcium 9.3 mg/dl (8.4-10.2) 07/30/24 13:08
Vitamin B12 235 pg/ml (239-931) L 07/30/24 18:57
Patient Allergies
No Known Allergies Allergy (Verified 07/28/24 14:11)
Vital Signs and Labs
-
Vital Signs and Labs:
Vital Signs
Temp Pulse Resp BP Pulse Ox
36.6 C 57 18 127/87 96
07/31/24 23:00 07/31/24 23:00 07/31/24 23:00 08/01/24 07:42 07/31/24 23:00
Lab Results
07/30/24 13:08
07/30/24 13:08
Sodium 141 mmol/L (135-145) 07/30/24 13:08
Potassium 3.6 mmol/L (3.5-5.1) 07/30/24 13:08
BUN 24 mg/dl (9-20) H 07/30/24 13:08
Glucose 125 mg/dl (70-99) H 07/30/24 13:08
Calcium 9.3 mg/dl (8.4-10.2) 07/30/24 13:08
Vitamin B12 235 pg/ml (239-931) L 07/30/24 18:57
Medications
-
Medications:
Generic Name Dose Route Start Last Admin
Trade Name Freq PRN Reason Stop Dose Admin
Acetaminophen 650 mg 07/28/24 21:43
Acetaminophen 325 Mg Tablet PO 08/25/24 21:42
Q4HPRN PRN
mild pain/ fever>100.5F
Amiodarone HCl 100 mg 07/29/24 08:00 08/01/24 07:42
Amiodarone 200 Mg Tablet PO 08/26/24 07:59 100 mg
DAILY PAKO Administration
Apixaban 5 mg 07/28/24 21:43 08/01/24 07:41
Apixaban (Eliquis) 5 Mg Tablet PO 08/25/24 21:42 5 mg
BID PAKO Administration
Atorvastatin Calcium 20 mg 07/29/24 08:00 08/01/24 07:41
Atorvastatin (Lipitor) 20 Mg Tablet PO 08/26/24 07:59 20 mg
DAILY PAKO Administration
Carbidopa/Levodopa 1 tablet 07/28/24 22:00 08/01/24 07:41
Carbidopa (25 Mg)/Levodopa (100 Mg) Regular Release Tablet PO 08/25/24 21:59 1 tablet
TID PAKO Administration
Cyanocobalamin 1,000 mcg 07/31/24 12:00 08/01/24 07:41
Cyanocobalamin 1,000 Mcg Tablet PO 08/28/24 11:59 1,000 mcg
DAILY PAKO Administration
Docusate Sodium 100 mg 07/30/24 13:00 08/01/24 07:41
Docusate Sodium 100 Mg Capsule PO 08/27/24 12:59 100 mg
BID PAKO Administration
Hydralazine HCl 10 mg 07/28/24 22:56 07/30/24 02:54
Hydralazine 20 Mg/Ml Vial IV 08/25/24 22:55 10 mg
Q6HPRN PRN Administration
SBP>180 or DBP>100
Losartan Potassium 100 mg 07/29/24 08:00 08/01/24 07:42
Losartan 100 Mg Tablet PO 08/26/24 07:59 100 mg
DAILY PAKO Administration
Metoprolol Succinate 100 mg 07/29/24 08:00 08/01/24 07:43
Metoprolol 100 Mg Extended Release Tablet PO 08/26/24 07:59 100 mg
DAILY PAKO Administration
Mirtazapine 15 mg 07/28/24 22:00 07/31/24 21:02
Mirtazapine 15 Mg Regular Release Tablet PO 08/25/24 21:59 15 mg
HS PAKO Administration
Pantoprazole Sodium 40 mg 07/29/24 08:00 08/01/24 07:41
Pantoprazole 40 Mg Delayed Release Tablet PO 08/26/24 07:59 40 mg
DAILY PAKO Administration
Polyethylene Glycol 17 grams 07/30/24 13:00 08/01/24 07:42
Polyethylene Glycol Powder 17 Grams Packet PO 08/27/24 12:59 17 grams
DAILY PAKO Administration
Sodium Chloride 0 flush 07/28/24 22:00
Sodium Chloride 0.9% (Flush) Syringe IV 08/25/24 21:59
PER PROTOCOL PAKO
Home Medications
-
Home Medications
amiodarone 200 mg tablet 100 mg PO DAILY Arrhythmia 02/26/22
apixaban 5 mg tablet (Eliquis) 5 mg PO BID Blood clot prevention/tx 02/26/22
atorvastatin 20 mg tablet 20 mg PO DAILY High cholesterol 02/26/22
carbidopa 25 mg-levodopa 100 mg tablet 1 tab PO TID Neurological Condition 02/26/22
metoprolol succinate 100 mg capsule sprinkle, ext. release 24 hr 100 mg PO DAILY Heart disease/condition 02/26/22
pantoprazole 40 mg tablet,delayed release 40 mg PO DAILY Gastrointestinal issue 02/26/22
bisacodyl 10 mg rectal suppository 10 mg MO DAILYPRN PRN if no BM x 3 days #0 ea 03/05/22
mirtazapine 15 mg tablet 15 mg PO HS #30 tabs 03/05/22
polyethylene glycol 3350 17 gram oral powder packet 17 g PO DAILYPRN PRN constipation #0 ea 03/05/22
losartan 50 mg tablet 100 mg PO BID Blood pressure 07/28/24
[2024-07-31] MEDS: REMERON 15 MG PO (21:02)
[2024-07-31 23:00] VITALS: BP 134/76
[2024-08-01 07:19] VITALS: BP 121/87
[2024-08-01] MEDS: VITAMIN B-12 1000 MCG PO (07:41)
[2024-08-01] MEDS: SINEMET 25-100 1 TABLET PO ×3 (07:41→21:08)
[2024-08-01] MEDS: ELIQUIS 5 MG PO ×2 (07:41→21:08)
[2024-08-01] MEDS: COLACE 100 MG PO ×2 (07:41→21:09)
[2024-08-01] MEDS: PROTONIX 40 MG PO (07:41)
[2024-08-01] MEDS: LIPITOR 20 MG PO (07:41)
[2024-08-01] MEDS: COZAAR 100 MG PO (07:42)
[2024-08-01] MEDS: PACERONE 100 MG PO (07:42)
[2024-08-01] MEDS: MIRALAX 17 GRAMS PO (07:42)
[2024-08-01] MEDS: TOPROL XL 100 MG PO (07:43)
[2024-08-01 09:44] LABS: Vitamin D, 25-OH*** 53.1 ng/mL (30-80)
[2024-08-01 09:58] LABS: TSH Reflex To Free T4 2.24 uIU/ml (0.47-4.68)
--- NOTE | 2024-08-01 10:25 | W.PN.HOSP.TC ---
Today's Communication/Plan
-
Monitor behavior and mental status. Discharge planning
Assessment / Plan
Assessment / Plan
Physical exam:
General: Well Developed, Well Nourished and No Apparent Distress
HEENT: Normocephalic, Atraumatic and Moist Mucous Membranes
Respiratory: Clear to Auscultation; Negative Wheezes, Rales or Rhonchi
Cardiac: Regular Rhythm and S1/S2
GI: Soft, Nontender and Nondistended
Musculoskeletal: No Clubbing, No Cyanosis and No Edema
Neuro: Awake, Alert and Oriented, generalized weakness, bradykinesia, masked facies, cogwheel rigidity with presence of tremors
Psych: Calm
A/P:
Ambulatory Dysfunction
-Consult PT/OT
-Consult Case Management for discharge planning
- Discussed with daughter over the phone again today
-Discussed with special education case manager and will request acute rehab evaluation-consulted salmon gillnet vessel operator.
Confusion likely related to delirium but also could be related to Parkinson's disease. Hallucinations. Neurology feels probable Lewy body disease. Psychiatry feels might benefit from Neuplazid but can investigate outpatient.
-Patient improving overall
- Check UA and unremarkable
-CT scan of the head unremarkable for acute findings
- Monitor mental status
-Neurology consult appreciated
- Psychiatry consult as requested by neurology
- Rehab consulted
-Discussed with special education case manager and will request acute rehab evaluation-consulted salmon gillnet vessel operator.
Paroxysmal Atrial Fibrillation
-Continue amiodarone and metoprolol for rate/rhythm control
-Continue Eliquis
Essential Hypertension
-Continue losartan and metoprolol with hold parameters
Hyperlipidemia
-Continue atorvastatin
Parkinson's Disease
-Continue Sinemet
Anxiety / Insomnia
-Continue Remeron
DVT proph: SCDs
Code Status: Full Code
Anticipated Discharge: 24 - 48 hours
Subjective/Interval History
-
Date of Service: August 01, 2024
Patient more alert and coherent today. No hallucinations. Afebrile
Objective Data
-
Vital Signs:
Vital Signs
Temp Pulse Resp BP Pulse Ox
97.5 F 59 18 127/87 96
08/01/24 07:19 08/01/24 07:19 08/01/24 07:19 08/01/24 07:42 08/01/24 07:19
I&O
07/31/24 08/01/24 08/02/24
06:59 06:59 06:59
Intake Total 960 / 960 480 / 480
Output Total 500 / 800 300 / 675 375 / 375
Balance 460 / 160 -300 / -195 105 / 105
--- NOTE | 2024-08-01 11:13 | W.PN.UPDATE ---
Update Note
Progress Note Update
patient seen chart reviewed. patient looks very well this am. hair was combed sal[place]o in order. when i commented on this he picked up his hairbrush and smiled. he was appropriately interactive. 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
raw cow's milk which has been in the news lately. he said people unnecessarily worry about the fat content of natural milk 'it's the media'. we also talked about infection from raw milk in the old days which could still be an issue today. he was
concerned about how long he would be here. hopefully not much longer than weekend as a skilled facility being sought for him to regain balance etc. i do not feel this man has lewy body dementia. this is PD with some occurrence of visual
hallucinations which is not uncommon. patient was not hallucinating this am and was able to interact well. he was also very cooperative with nursing vis a vis hygiene. psych will sign off.
--- NOTE | 2024-08-01 12:30 | CM ---
Addendum entered by Jaleesa Ball RN 08/01/24 12:34:
Patient from [facility] with Hx Parkinsons Disease with Dx Ambulatory Dysfunction, Confusion. Room air. Seen by Psych; Parkinsons Disease with Hallucinations. PT/OT recommend skilled rehab. Physiatry Consult pending.
Message with Dr Hensley; he will see the patient on 08/03.
Received phone call from patient's daughter Christy; she expressed concern that her father told her he is not getting much PT/OT while here- read her the PT/OT notes with assist levels and assessments indicating patient required more assistance on
last PT/OT session 07/31. Daughter was hoping patient was sorted out by now with d/c plans, as she is going away on vacation starting tomorrow and her brother Geoffrey, who lives in [place], will be covering for her while she is away - confirmed his phone
# in chart. Daughter hoping patient will be able to go to [facility] at discharge. Provided update that Physiatry Consult was pending until Saturday.
Family contact with be son Geoffrey as per above.
Plan follow up after seen by Physiatry.
Original Note:
Patient from [facility] with Hx
[2024-08-01 15:02] VITALS: BP 120/56
[2024-08-01] MEDS: REMERON 15 MG PO (21:08)
[2024-08-01 23:00] VITALS: BP 158/82
[2024-08-02 07:00] VITALS: BP 160/76
[2024-08-02 07:49] VITALS: BP 177/78
[2024-08-02] MEDS: LIPITOR 20 MG PO (07:51)
[2024-08-02] MEDS: PROTONIX 40 MG PO (07:51)
[2024-08-02] MEDS: MIRALAX 17 GRAMS PO (07:51)
[2024-08-02] MEDS: ELIQUIS 5 MG PO ×2 (07:51→19:57)
[2024-08-02] MEDS: VITAMIN B-12 1000 MCG PO (07:51)
[2024-08-02] MEDS: COLACE 100 MG PO ×2 (07:51→19:57)
[2024-08-02] MEDS: SINEMET 25-100 1 TABLET PO ×3 (07:51→22:05)
[2024-08-02] MEDS: COZAAR 100 MG PO (07:51)
[2024-08-02] MEDS: TOPROL XL 100 MG PO (07:52)
[2024-08-02] MEDS: PACERONE 100 MG PO (07:52)
--- NOTE | 2024-08-02 09:11 | W.PN.HOSP.TC ---
Today's Communication/Plan
-
Rehab eval
Assessment / Plan
Assessment / Plan
Physical exam:
General: Well Developed, Well Nourished and No Apparent Distress
HEENT: Normocephalic, Atraumatic and Moist Mucous Membranes
Respiratory: Clear to Auscultation; Negative Wheezes, Rales or Rhonchi
Cardiac: Regular Rhythm and S1/S2
GI: Soft, Nontender and Nondistended
Musculoskeletal: No Clubbing, No Cyanosis and No Edema
Neuro: Awake, Alert and Oriented, generalized weakness, bradykinesia, masked facies, cogwheel rigidity with presence of tremors
Psych: Calm
A/P:
Ambulatory Dysfunction
-Consult PT/OT
-Consult Case Management for discharge planning
- Discussed with daughter over the phone again today
-Discussed with embedded case manager and requested acute rehab evaluation-consulted blade balancer.
Confusion likely related to delirium but also could be related to Parkinson's disease. Hallucinations. Neurology feels probable Lewy body disease. Psychiatry feels might benefit from Neuplazid but can investigate outpatient.
-Patient improving overall
- Check UA and unremarkable
-CT scan of the head unremarkable for acute findings
- Monitor mental status
-Neurology consult appreciated
- Psychiatry consult as requested by neurology
- Rehab consulted
-Discussed with embedded case manager and will request acute rehab evaluation-consulted blade balancer.
Paroxysmal Atrial Fibrillation
-Continue amiodarone and metoprolol for rate/rhythm control
-Continue Eliquis
Essential Hypertension
-Continue losartan and metoprolol with hold parameters
Hyperlipidemia
-Continue atorvastatin
Parkinson's Disease
-Continue Sinemet
Anxiety / Insomnia
-Continue Remeron
DVT proph: SCDs
Code Status: Full Code
Anticipated Discharge: 24 - 48 hours
Subjective/Interval History
-
Date of Service: August 02, 2024
Patient alert, mildly disoriented. Denies any new complaints. Afebrile
Objective Data
-
Vital Signs:
Vital Signs
Temp Pulse Resp BP Pulse Ox
98.1 F 62 20 177/78 95
08/02/24 07:49 08/02/24 07:49 08/02/24 07:49 08/02/24 07:49 08/02/24 07:49
I&O
08/01/24 08/02/24 08/03/24
06:59 06:59 06:59
Intake Total 1440 / 1440
Output Total 300 / 675 1825 / 1825
Balance -300 / -195 -385 / -385
[2024-08-02 12:05] LABS: Glucose - Point of Care 122 mg/dl (70-99)
[2024-08-02 15:00] VITALS: BP 143/75
[2024-08-02] MEDS: REMERON 15 MG PO (22:05)
[2024-08-03 08:40] VITALS: BP 115/89
[2024-08-03 09:01] LABS: Blood Urea Nitrogen 27 mg/dl (9-20); Calcium 9.4 mg/dl (8.4-10.2); Carbon Dioxide 33 mmol/L (22-30); Chloride 103 mmol/L (98-107); Estimated Creatinine Clearance 82 ml/min; Glucose 93 mg/dl (70-99); Potassium 4.6 mmol/L (3.5-5.1); Sodium 140 mmol/L (135-145); eGFR > 60.00
[2024-08-03 09:38] LABS: Albumin 3.77 g/dL (3.75-5.01); Alpha 1 Globulin 0.35 g/dL (0.19-0.46); Alpha 2 Globulin 0.79 g/dL (0.48-1.05); SPEP IFE Reflex Not Done; Total Protein-Electrophoresis 6.8 g/dL (6.3-8.2)
[2024-08-03] MEDS: COLACE 100 MG PO ×2 (10:23→22:01)
[2024-08-03] MEDS: SINEMET 25-100 1 TABLET PO ×3 (10:24→22:01)
[2024-08-03] MEDS: PROTONIX 40 MG PO (10:24)
[2024-08-03] MEDS: COZAAR 100 MG PO (10:24)
[2024-08-03] MEDS: LIPITOR 20 MG PO (10:25)
[2024-08-03] MEDS: ELIQUIS 5 MG PO ×2 (10:25→22:01)
[2024-08-03] MEDS: PACERONE 100 MG PO (10:26)
[2024-08-03] MEDS: MIRALAX 17 GRAMS PO (10:26)
[2024-08-03] MEDS: VITAMIN B-12 1000 MCG PO (10:27)
[2024-08-03] MEDS: TOPROL XL 100 MG PO (10:27)
--- NOTE | 2024-08-03 11:50 | W.PN.HOSP.TC ---
Today's Communication/Plan
-
Discharge planning
Assessment / Plan
Assessment / Plan
Physical exam:
General: Well Developed, Well Nourished and No Apparent Distress
HEENT: Normocephalic, Atraumatic and Moist Mucous Membranes
Respiratory: Clear to Auscultation; Negative Wheezes, Rales or Rhonchi
Cardiac: Regular Rhythm and S1/S2
GI: Soft, Nontender and Nondistended
Musculoskeletal: No Clubbing, No Cyanosis and No Edema
Neuro: Awake, Alert and Oriented, generalized weakness, bradykinesia, masked facies, cogwheel rigidity with presence of tremors
Psych: Calm
Ambulatory Dysfunction -due to underlying Parkinson's disease, deconditioning. Continue PT/OT. Family requesting physiatry consult and consideration for acute rehab. Clinically I feel that he is most appropriate for SNF.
Discussed with case management.
Confusion likely related to delirium but also could be related to Parkinson's disease. Hallucinations. Neurology feels probable Lewy body disease. Psychiatry feels might benefit from Neuplazid but can investigate outpatient.
-Patient improving overall
-CT scan of the head unremarkable for acute findings
- Monitor mental status
-Neurology consult appreciated
- Psychiatry consult as requested by neurology
- Rehab consulted
-Discussed with corrections caseworker and will request acute rehab evaluation-consulted sapphire stylus grinder.
Paroxysmal Atrial Fibrillation
-Continue amiodarone and metoprolol for rate/rhythm control
-Continue Eliquis
Essential Hypertension
-Continue losartan and metoprolol with hold parameters
Hyperlipidemia
-Continue atorvastatin
Parkinson's Disease
-Continue Sinemet
Anxiety / Insomnia
-Continue Remeron
DVT proph: SCDs
Code Status: Full Code
Dispo -medically stable for discharge. He currently resides in a personal custodial. Disposition will be skilled rehab versus acute. Discussed with case management.
Anticipated Discharge: Within 24 hours
Subjective/Interval History
-
Date of Service: August 03, 2024
Patient seen and examined. No complaints.
Objective Data
-
Labs:
Laboratory Results
08/03/24
07:51
Sodium 140
Potassium 4.6
Chloride 103
Carbon Dioxide 33 H
BUN 27 H
Creatinine 0.8
Glucose 93
Calcium 9.4
Vital Signs:
Vital Signs
Temp Pulse Resp BP Pulse Ox
98.5 F 63 20 115/89 96
08/03/24 08:40 08/03/24 10:24 08/03/24 08:40 08/03/24 10:24 08/03/24 08:40
I&O
08/02/24 08/03/24 08/04/24
06:59 06:59 06:59
Intake Total 1440 / 1440 440 / 440
Output Total 1825 / 182
Balance -385 / -385 440 / 440
Review of Systems
-
History Source: Patient
All other systems: Reviewed and negative
[2024-08-03 13:44] VITALS: BP 121/57; PULSE 58; O2SAT 94
--- NOTE | 2024-08-03 15:21 | CM ---
Patient seen at bedside. Patient son spoke with CM and updated him that both Acute rehabs have declined patient at this time. Son still wants to see what Dr. Hensley's opinion is but agreed that CM could reach out to [facility] to see if they would be
able to accept patient back at his current level of care. Patient son updated that due to OBS level of care patient would be private pay at this time. CM will continue to follow for discharge planning needs.
Plan; Acute rehab vs snf vs return [facility]
[2024-08-03 16:01] VITALS: BP 121/74
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
[2024-08-03] MEDS: REMERON 15 MG PO (22:01)
[2024-08-03 23:44] VITALS: BP 156/82
[2024-08-04 07:00] VITALS: BP 143/79
[2024-08-04] MEDS: ELIQUIS 5 MG PO (08:59)
[2024-08-04] MEDS: MIRALAX 17 GRAMS PO (08:59)
[2024-08-04] MEDS: TOPROL XL 100 MG PO (08:59)
[2024-08-04] MEDS: PACERONE 100 MG PO (08:59)
[2024-08-04] MEDS: LIPITOR 20 MG PO (08:59)
[2024-08-04] MEDS: SINEMET 25-100 1 TABLET PO ×2 (08:59→14:59)
[2024-08-04] MEDS: COLACE 100 MG PO (08:59)
[2024-08-04] MEDS: VITAMIN B-12 1000 MCG PO (08:59)
[2024-08-04] MEDS: PROTONIX 40 MG PO (08:59)
[2024-08-04] MEDS: COZAAR 100 MG PO (09:01)
--- NOTE | 2024-08-04 10:24 | W.PN.HOSP.TC ---
Today's Communication/Plan
-
Discharge planning
Assessment / Plan
Assessment / Plan
Physical exam:
General: Well Developed, Well Nourished and No Apparent Distress
HEENT: Normocephalic, Atraumatic and Moist Mucous Membranes
Respiratory: Clear to Auscultation; Negative Wheezes, Rales or Rhonchi
Cardiac: Regular Rhythm and S1/S2
GI: Soft, Nontender and Nondistended
Musculoskeletal: No Clubbing, No Cyanosis and No Edema
Neuro: Awake, Alert and Oriented, generalized weakness, bradykinesia, masked facies, cogwheel rigidity with presence of tremors
Psych: Calm
Ambulatory Dysfunction -due to underlying Parkinson's disease, deconditioning. Continue PT/OT. Physiatry recommends SNF.
Confusion likely related to delirium but also could be related to Parkinson's disease. Hallucinations. Neurology feels probable Lewy body disease. Psychiatry feels might benefit from Neuplazid but can investigate outpatient.
-Patient improving overall
-CT scan of the head unremarkable for acute findings
- Monitor mental status
-Neurology consult appreciated
- Psychiatry consult as requested by neurology
Paroxysmal Atrial Fibrillation
-Continue amiodarone and metoprolol for rate/rhythm control
-Continue Eliquis
Essential Hypertension
-Continue losartan and metoprolol with hold parameters
Hyperlipidemia
-Continue atorvastatin
Parkinson's Disease
-Continue Sinemet
Anxiety / Insomnia
-Continue Remeron
DVT proph: SCDs
Code Status: Full Code
Dispo -medically stable for discharge. He currently resides in a personal residential. Ideally needs to go to SNF. Case management aware.
Anticipated Discharge: Within 24 hours
Subjective/Interval History
-
Date of Service: August 04, 2024
Patient seen and examined. No complaints.
Objective Data
-
Vital Signs:
Vital Signs
Temp Pulse Resp BP Pulse Ox
98.3 F 58 20 143/79 96
08/04/24 07:00 08/04/24 07:00 08/04/24 07:00 08/04/24 07:00 08/04/24 10:06
I&O
08/03/24 08/04/24 08/05/24
06:59 06:59 06:59
Intake Total 440 / 440 840 / 840
Output Total 1310 / 1310
Balance 440 / 440 -470 / -470
Review of Systems
-
History Source: Patient
All other systems: Reviewed and negative
--- NOTE | 2024-08-04 12:01 | W.DS.TRANS ---
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
-
Discharge Instructions:
Sleep Apnea Risk Intermediate
Discharge Diagnosis/Procedures Ambulatory dysfunction
Diet Regular
Activity With assistance,As tolerated
Driving Restrictions No driving
Bathing Restrictions None
Instructions:
Stand-Alone Forms:
Changes to Home Medications: Yes
Discharge Medications:
DC Medications w/original date entered in [facility]
amiodarone 200 mg tablet 100 mg PO DAILY Arrhythmia 02/26/22
apixaban 5 mg tablet (Eliquis) 5 mg PO BID Blood clot prevention/tx 02/26/22
atorvastatin 20 mg tablet 20 mg PO DAILY High cholesterol 02/26/22
carbidopa 25 mg-levodopa 100 mg tablet 1 tab PO TID Neurological Condition 02/26/22
metoprolol succinate 100 mg capsule sprinkle, ext. release 24 hr 100 mg PO DAILY Heart disease/condition 02/26/22
pantoprazole 40 mg tablet,delayed release 40 mg PO DAILY Gastrointestinal issue 02/26/22
bisacodyl 10 mg rectal suppository 10 mg SC DAILYPRN PRN if no BM x 3 days #0 ea 03/05/22
mirtazapine 15 mg tablet 15 mg PO HS #30 tabs 03/05/22
cyanocobalamin (vitamin B-12) 1,000 mcg tablet (Vitamin B-12) 1,000 mcg PO DAILY #30 tabs 08/04/24
losartan 100 mg tablet 100 mg PO DAILY #30 tabs 08/04/24
polyethylene glycol 3350 17 gram oral powder packet 17 g PO DAILY #0 ea 08/04/24
Home Medication Changes
Losartan dose reduced to 100 mg daily.
Pending Results: No
--- NOTE | 2024-08-04 12:02 | CM ---
Chart reviewed and ed case manager spoke with patient's son and Kassy in admissions at [facility] and plan is for patient to return to [facility] today, with [facility].
Plan; Patient to return to [facility] today with [facility].
[facility]
Report [phone]
[2024-08-04 15:00] VITALS: BP 121/61
[2024-08-04 19:01] LABS: Vitamin B1, Whole Blood 147 nmol/L (70-180)
== END 2024-08-04 16:18 | disposition home or self-care (01) ==
LOC: 4 WEST ACU 20:34
PROVIDERS: Hospitalist; Physician Assistant; ADMITTING PHYSICIAN Hospitalist; ATTENDING PHYSICIAN Hospitalist; CONSULT PHYSICIAN Physical Medicine & Rehabilitation; CONSULT PHYSICIAN Psychiatry & Neurology Neurology; CONSULT PHYSICIAN Psychiatry & Neurology Psychiatry; EMERGENCY PHYSICIAN Emergency Medicine; FAMILY PHYSICIAN Physician Assistant
DX: R26.2 Difficulty in walking, not elsewhere classified (principal); M25.551 Pain in right hip; Z79.01 Long term (current) use of anticoagulants; I48.0 Paroxysmal atrial fibrillation; I10 Essential (primary) hypertension; Z79.899 Other long term (current) drug therapy; G20.A1 Parkinson's disease without dyskinesia, without mention of fluctuations; G47.00 Insomnia, unspecified; F41.9 Anxiety disorder, unspecified; R53.83 Other fatigue; R44.0 Auditory hallucinations; R44.1 Visual hallucinations; E78.00 Pure hypercholesterolemia, unspecified; E66.9 Obesity, unspecified; G62.9 Polyneuropathy, unspecified; G93.40 Encephalopathy, unspecified; K59.09 Other constipation
CPT/HCPCS: 70450; 72125; 72192; 73523; 80048; 80053; 81003; 81015; 82306; 82607; 82746; 82962; 84155; 84165; 84425; 84443; 85025; 87070; 90715; 97116; 97163; 97167; 97530; 97535; 99285; G0378